=== PATIENT | female | born 1950 | race Caucasian/White ===

== ENCOUNTER → 2016-11-23 | Outpatient (CLI) | payer BC | LOC: FIMAGING 11:56 | PROVIDERS: ATTEND Family Medicine | DX: N64.4 Mastodynia (principal); Z85.3 Personal history of malignant neoplasm of breast | CPT/HCPCS: G0204 ==

== ENCOUNTER 2017-02-25 08:10 | Inpatient (IN) | payer BC ==
[2017-02-25] MEDS ORDERED: ASPIRIN 325 MG TAB PO ONE (08:16)
--- NOTE | 2017-02-25 08:19 | CPEKG ---
Heart Rate: 66 RR Interval: 909 P-R Interval: 160 QRSD Interval: 104 QT Interval: 388 QTC Interval: 407 P Maxwell: 13 QRS Maxwell: -16 T Wave Maxwell: 40 EKG Severity - ABNORMAL ECG - EKG Impression: SINUS RHYTHM EKG Impression: PROBABLE LEFT VENTRICULAR HYPERTROPHY Electronically Signed By: Mark Anthony Trujillo 25-Feb-2017 13:24:47
[2017-02-25] MEDS ORDERED: ASPIRIN 81 MG CHEWABLE TAB PO ONE (08:21)
--- NOTE | 2017-02-25 08:26 | EDPHY ---
H & P Time Seen by Provider: 02/25/17 08:25 HPI/ROS: Chief complaint. Chest pain HPI. 66-year-old female presents to the emergency department with chest pain that began at 7:40 a.m. this morning. It began while she was moving items from 1 shelf to another at home. It began with left arm pain and then quickly became left anterior chest discomfort. Now it has mid left chest radiating to the left arm. She describes it as a cramp. Slight shortness of breath. Seems to be worse with exertion not breathing or position. No similar symptoms previously. No recent fever cough. No unusual leg pain or swelling. ROS Constitutional. no fever/chills, no weakness Eyes. no problems with vision ENT. no sore throat, no nasal drainage Cardiovascular. Chest pain Respiratory. Shortness of breath Abdominal. no abdominal pain, no nausea/vomiting, no diarrhea . no problems urinating MS. no calf pain/swelling, no neck/back pain, no joint pain Skin. no rash Lymph. no swollen glands Neuro. no headache, no dizziness, no difficulty walking or with speech Past Medical/Surgical History: Dyslipidemia, GERD Family history father with coronary artery disease Social History: , nonsmoker, no alcohol Physical Exam: General Appearance: Alert well-developed female moderate distress vital signs are stable Eyes: Pupils equal and round no pallor or injection. ENT, Mouth: Mucous membranes are moist. Respiratory: There are no retractions, lungs are clear to auscultation. Cardiovascular: Regular rate and rhythm. Gastrointestinal: Abdomen is soft and nontender, no masses, bowel sounds normal. Neurological: Awake and alert, sensory and motor exams grossly normal. Skin: Warm and dry, no rashes. Musculoskeletal: Neck is supple nontender. Extremities symmetrical, full range of motion. Psychiatric: Patient is oriented X 3, there is no agitation. Constitutional: Initial Vital Signs Temperature (C) 36.5 C 02/25/17 08:18 Heart Rate 71 02/25/17 08:18 Respiratory Rate 18 02/25/17 08:18 Blood Pressure 161/85 H 02/25/17 08:18 O2 Sat (%) 95 02/25/17 08:18 O2 Delivery Mode Room Air O2 (L/minute) 1 Allergies/Adverse Reactions: adhesive tape Allergy (Verified 02/25/17 08:27) ketamine Allergy (Verified 02/25/17 09:15) phenylbutazone [From Butazolidin] Allergy (Verified 02/25/17 08:27) topiramate [From Topamax] Allergy (Verified 02/25/17 08:27) Home Medications: Medication Instructions Recorded Acetaminophen/ASA/Caffeine 1 each PO DAILY PRN 02/25/17 [Excedrin Tablet (*)] Aspirin [Aspirin 81mg (*)] 81 mg PO DAILY 02/25/17 Cholecalciferol Vit D3 [Vitamin D3 2,000 units PO BID 02/25/17 (*)] Diphenoxylate HCl/Atrop Sulf 1 - 2 tab PO Q6H PRN 02/25/17 [Lomotil Tab (*)] Esomeprazole Mag Trihydrate 40 mg PO BID 02/25/17 [Nexium] Furosemide [Lasix 20 MG (*)] 20 mg PO BID 02/25/17 Herbals/Supplements -Info Only 1 ea PO DAILY 02/25/17 Hyoscyamine Sulfate [Levsin, 0.125 mg PO DAILY PRN 02/25/17 Hyomax-Sl 0.125 mg (*)] Lact Cmb2/S.thermophl/Bif Cmb1 1 each PO DAILY 02/25/17 [Vsl#3 Cap (*)] Multivitamins [Multivitamin (*)] 1 each PO DAILY 02/25/17 Ondansetron Odt [Zofran Odt 4 mg 4 mg PO DAILY PRN 02/25/17 (*)] Potassium Chloride 10 meq PO HS 02/25/17 Propranolol Sr [Inderal LA 60mg 120 mg PO BID 02/25/17 (*)] Rosuvastatin Calcium [Crestor 5mg] 10 mg PO HS 02/25/17 carBAMazepine ER [Tegretol Xr] 200 mg PO DAILY@1200 02/25/17 carBAMazepine ER [Tegretol Xr] 300 mg PO BID@07,21 02/25/17 Medical Decision Making - Diagnostics EKG Interpretation: EKG interpreted by me shows normal sinus rhythm with normal interval and axis. LVH by voltage. No significant ST elevation or depression. No arrhythmia. The rate is 66 Imaging Results: One-view chest x-ray interpreted by me as negative acute Procedures: IV normal saline, monitor. Aspirin given in the emergency department Nitroglycerin sublingually for continued chest discomfort ED Course/Re-evaluation: Re-evaluation after nitroglycerin sublingually and the pain is markedly improved. She did get briefly hypotensive at about 100/50. She is treated with IV fluids Re-evaluation again at 9:05 a.m.. Patient is nearly pain-free. Blood pressure has stabilized 9:10 a.m. D-dimer and troponin are negative. Patient, her , and I discussed imaging, EKG, lab results. We discussed treatment plan including recommendation for admission. They expressed understanding and agreement I consulted and discussed the case with Dr. Johnson, hospitalist, who agrees to the admission Patient is reported by ambulance to [facility] Differential Diagnosis: I have considered acute coronary syndrome, non ST elevation [place], pneumonia, pulmonary embolus - Data Points Laboratory Results: Laboratory Results 02/26/17 07:33 02/26/17 04:50 Medications Given: Acetaminophen (Tylenol) 650 mg PO Q4HRS PRN PRN Reason: Pain, Mild/Fever, Can Take PO Stop: 08/24/17 13:19 Last Admin: 02/26/17 12:34 Dose: 650 mg Aspirin Buffered (Aspirin Ec) 325 mg PO DAILY LYDIA Stop: 08/25/17 08:59 Last Admin: 02/26/17 08:07 Dose: 325 mg Carbamazepine (Carbatrol) 200 mg PO DAILY@1200 LYDIA Stop: 08/25/17 11:59 Last Admin: 02/26/17 12:34 Dose: 200 mg Carbamazepine (Carbatrol) 300 mg PO BID@07,21 LYDIA Stop: 08/24/17 20:59 Last Admin: 02/27/17 06:56 Dose: 300 mg Furosemide (Lasix) 20 mg PO BIDDIUR LYDIA Stop: 08/24/17 20:59 Last Admin: 02/26/17 15:13 Dose: 20 mg Lact Acid/Bifidobact/Lact [place]/Streptoc Th (Vsl#3 Capsule) 1 each PO DAILY LYDIA Stop: 08/25/17 08:59 Last Admin: 02/26/17 08:16 Dose: 1 each Pantoprazole Sodium (Protonix) 40 mg PO BID LYDIA Stop: 08/24/17 20:59 Last Admin: 02/26/17 21:08 Dose: 40 mg Potassium Chloride (Klor-Con) 10 meq PO HS LYDIA Stop: 08/24/17 20:59 Last Admin: 02/26/17 21:08 Dose: 10 meq Propranolol HCl (Inderal La) 120 mg PO BID LYDIA Stop: 08/24/17 20:59 Last Admin: 02/26/17 21:08 Dose: 120 mg Rosuvastatin Calcium (Crestor) 10 mg PO HS [facility] Stop: 08/24/17 20:59 Last Admin: 02/26/17 21:08 Dose: 10 mg Discontinued Medications Aspirin (Aspirin) 325 mg PO EDNOW ONE Stop: 02/25/17 08:17 Last Admin: 02/25/17 08:25 Dose: Not Given Aspirin (Aspirin) 324 mg PO EDNOW ONE Stop: 02/25/17 08:22 Last Admin: 02/25/17 08:23 Dose: 324 mg Aspirin Buffered (Aspirin Ec) 325 mg PO ONCALL ONE Stop: 02/25/17 14:58 Last Admin: 02/25/17 16:57 Dose: Not Given Diazepam (Valium) 5 mg PO ONCALL ONE Stop: 02/25/17 14:58 Last Admin: 02/25/17 16:58 Dose: Not Given Diphenhydramine HCl (Benadryl) 25 mg PO ONCALL ONE Stop: 02/25/17 14:58 Last Admin: 02/25/17 16:58 Dose: Not Given Famotidine (Pepcid) 20 mg PO ONCALL ONE Stop: 02/25/17 14:58 Last Admin: 02/25/17 16:58 Dose: Not Given Furosemide (Lasix) 20 mg PO BID [facility] Stop: 08/24/17 20:59 Last Admin: 02/26/17 08:07 Dose: 20 mg Sodium Chloride (Ns) 1,000 mls @ 0 mls/hr IV ONCE ONE PRN Reason: Wide Open Stop: 02/25/17 08:38 Last Admin: 02/25/17 08:38 Dose: 1,000 mls Nitroglycerin (Nitrostat) 0.4 mg SL Q5M PRN PRN Reason: Chest Pain Stop: 02/25/17 08:46 Last Admin: 02/25/17 08:38 Dose: 0.4 mg Nitroglycerin (Nitrostat) 0.4 mg SL PRN PRN PRN Reason: Chest Pain Stop: 08/24/17 14:56 Last Admin: 02/25/17 22:47 Dose: 0.4 mg Departure - Departure Disposition: [facility] Inpatient Acute Clinical Impression: Chest pain Qualifiers: Chest pain type: unspecified Qualified Code(s): R07.9 - Chest pain, unspecified Condition: Good
[2017-02-25] MEDS ORDERED: NITROGLYCERIN 0.4 MG BTL SL PRN ×3 (08:35→16:43)
[2017-02-25] MEDS ORDERED: NITROGLYCERIN 0.4 MG BTL SL ONE ×2 (08:36→13:06)
[2017-02-25] MEDS ORDERED: NS 1,000 ML IV ONE (08:37)
[2017-02-25 08:40] LABS: % IMMATURE GRANULYOCYTES 0.5 % (0.0-1.1); ABSOLUTE IMMATURE GRANULOCYTES 0.03 10^3/uL (0.00-0.10); ADD DIFF? NO; ADD MORPH? NO; ADD SCAN? NO; ATYPICAL LYMPHOCYTE FLAG 0 (0-99); FRAGMENT RBC FLAG 0 (0-99); HEMATOCRIT 43.2 % (38.0-47.0); HEMOGLOBIN 14.6 g/dL (12.6-16.3); LEFT SHIFT FLG 0 (0-99); LIPEMIA HEMOLYSIS FLAG 90 (0-99); MEAN CELL HEMOGLOBIN 30.6 pg (27.9-34.1); MEAN CELL HEMOGLOBIN CONCENTR. 33.8 g/dL (32.4-36.7); MEAN CELL VOLUME 90.6 fL (81.5-99.8); MEAN PLATELET VOLUME 11.5 fL (8.7-11.7); PLATELET CLUMPS FLAG 30 (0-99); PLATELET COUNT 167 10^3/uL (150-400); RED BLOOD CELL COUNT 4.77 10^6/uL (4.18-5.33); RED CELL DISTRIBUTION WIDTH 13.5 % (11.5-15.2)
[2017-02-25 08:52] LABS: ANION GAP 12 mEq/L (8-16); CALCIUM 9.2 mg/dL (8.5-10.4); CARBON DIOXIDE 26 mEq/l (22-31); CHLORIDE 104 mEq/L (97-110); CREATININE 0.9 mg/dL (0.6-1.0); GLOMERULAR FILTRATION RATE > 60; GLUCOSE 150 mg/dL (70-100); POTASSIUM 4.4 mEq/L (3.5-5.2); SODIUM 142 mEq/L (134-144)
[2017-02-25 09:05] LABS: TROPONIN I < 0.012 ng/mL (0.000-0.034)
[2017-02-25] MEDS ORDERED: oxyCODONE IR 5 MG TAB PO PRN (13:20)
[2017-02-25] MEDS ORDERED: ONDANSETRON 4 MG/2 ML VIAL IVP PRN ×2 (13:20→16:43)
[2017-02-25] MEDS ORDERED: TEMAZEPAM 15 MG CAP PO PRN ×2 (13:20→14:57)
[2017-02-25] MEDS ORDERED: ONDANSETRON DISINTEGRATING 4 MG TAB PO PRN (13:20)
[2017-02-25] MEDS ORDERED: DIPHENOXYLATE/ATROPINE LOMOTIL 1 TAB PO PRN (13:22)
[2017-02-25] MEDS ORDERED: ACETAMINOPHEN/ASA/CAFFEINE 1 EACH TAB PO PRN (13:22)
[2017-02-25] MEDS ORDERED: HYOSCYAMINE SULFATE 0.125 MG TAB PO PRN (13:22)
[2017-02-25 13:53] LABS: TROPONIN I 0.225 ng/mL (0.000-0.034)
--- NOTE | 2017-02-25 13:59 | GHP ---
[f rep st] HISTORY AND PHYSICAL DATE OF ADMISSION: 02/25/2017 CHIEF COMPLAINT: Chest pain. HISTORY OF PRESENT ILLNESS: This is a 66-year-old female who presents with chest pain. This starte d 7:40 a.m. this morning. Described as left-sided tightness with some sharp components radiating to her left arm. It is unclear if this was exertional. It did not seem to be significantly worsened by exertion. It began while she was moving stuffed animals from one shelf to another. In the urgen t care she received a sublingual nitroglycerin, which resolved her pain. When I am seeing her, her pain is beginning to return. It was as bad as a 6/10. When I am seeing her, it is about 2/10. I g ave her another nitroglycerin with resolution of her pain in about 5 minutes. PAST MEDICAL/SURGICAL HISTORY: 1. Hyperlipidemia. 2. GERD. 3. Trigeminal neuralgia. MEDICATIONS: Please see medication reconciliation. ALLERGIES: Tape, ketamine, phenylbutazone, topiramate. SOCIAL HISTORY: She is accompanied by her . She does not drink or smoke. FAMILY HISTORY: Her father had heart disease. He had 2 MIs in his 60s. REVIEW OF SYSTEMS: A 10-point review of systems is conducted and is negative except per HPI. PHYSICAL EXAM: VITAL SIGNS: Blood pressure 108/77, heart rate 62, respiration rate 16, sat 91% on room air, temperature is 36.9. GENERAL: The patient is a pleasant female who is resting comfortabl y in no acute distress. HEENT: Normocephalic, atraumatic. CARDIOVASCULAR: Regular rate and rhyth m. No murmurs, rubs, or gallops. No elevated JVD. No lower extremity edema. PULMONARY: Lungs cl ear to auscultation bilaterally. ABDOMEN: Soft, nontender, nondistended. SKIN: No rash. : No Powers. NEUROLOGIC: Exam shows her to be alert and oriented x3. She is moving all extremities. P SYCHIATRIC: Normal mood and affect. LABS: CBC is normal. D-dimer is negative. Glucose is 150. Troponins negative. DATA: 1. I personally viewed and interpreted her chest x-ray. This shows nothing acute. Normal heart si ze. 2. EKG, which I personally viewed and interpreted, shows sinus rhythm. Borderline left axis deviat ion. There are no ST changes. No abnormal T-waves. IMPRESSION AND PLAN: A 66-year-old female presents with chest pain concerning for angina. 1. Chest pain: I have discussed with Cardiology. They will consult. I have drawn a second stat t roponin to further help risk stratify her. Based on her followup enzymes and cardiology evaluation, anticipate either stress test or invasive evaluation. She received an aspirin already. Her risk f actors for heart disease are obesity, age, and hyperlipidemia. 2. Hyperglycemia: She does not have a diagnosis of diabetes. We will check an A1c. 3. Hyperlipidemia: Crestor. 4. Trigeminal neuralgia: Tegretol. 5. Code status: Full code. /[id number]/MODL
[2017-02-25] MEDS ORDERED: FAMOTIDINE 20 MG TAB PO ONE (14:57)
[2017-02-25] MEDS ORDERED: ACETAMINOPHEN 325 MG TAB PO PRN (14:57)
[2017-02-25] MEDS ORDERED: ASPIRIN EC 325 MG TAB PO ONE (14:57)
[2017-02-25] MEDS ORDERED: diphenhydrAMINE 25 MG CAP PO ONE (14:57)
[2017-02-25] MEDS ORDERED: DIAZEPAM 5 MG TAB PO ONE (14:57)
[2017-02-25] MEDS ORDERED: NS 1,000 ML IV SCH (15:00)
[2017-02-25] MEDS ORDERED: MIDAZOLAM 2 MG/2 ML VIAL ONE ×2 (15:05→15:06)
[2017-02-25] MEDS ORDERED: fentaNYL 100 MCG/2 ML INJ ONE (15:05)
[2017-02-25] MEDS ORDERED: LIDOCAINE 1% 300 MG/30 ML SDV ONE (15:05)
[2017-02-25] MEDS ORDERED: IOPAMIDOL (ISOVUE-370) 150 ML BTL IV ONE (15:06)
--- NOTE | 2017-02-25 15:13 | PDCARCONS ---
Cardiology Consult Reason for Consult: Chest Pain Chief Complaint: chest pain Requesting Physician: hospitalists History of Present Illness: Patient is a 66 y/o female with history of HLP (on statins), migraines, obesity , and GERD, who presented to [facility] this morning with complaints of chest discomfort. Discomfort was a pain, with intensity to 8-9/10. Localized to the left substernal region. There was some radiation into the left shoulder, shoulder blade, and down the left arm. Mild nausea was noted, but no emesis. Mild diaphoresis. Mild dyspnea. Sub lingual NTG led to resolution of the discomfort, but after a few, the symptoms came back. A second NTG led to current improvement in symptoms. Initial troponin was normal, but second troponin was elevated to 0.2. ECG without dynamic ST/T wave changes noted. No history of CAD in the past. PCP with stress testing in the past and no overt pathology noted. Review of systems: 12 point ROS was unremarkable outside of that which was mentioned above History Information - Allergies/Home Medication List Allergies/Adverse Reactions: adhesive tape Allergy (Verified 02/25/17 08:27) ketamine Allergy (Verified 02/25/17 09:15) phenylbutazone [From Butazolidin] Allergy (Verified 02/25/17 08:27) topiramate [From Topamax] Allergy (Verified 02/25/17 08:27) Home Medications: Acetaminophen/ASA/Caffeine [Excedrin Tablet (*)] 1 each PO DAILY PRN 02/25/17 [ Last Taken Unknown] Aspirin [Aspirin 81mg (*)] 81 mg PO DAILY 02/25/17 [Last Taken 02/25/17] Cholecalciferol Vit D3 [Vitamin D3 (*)] 2,000 units PO BID 02/25/17 [Last Taken 02/25/17] Diphenoxylate HCl/Atrop Sulf [Lomotil Tab (*)] 1 - 2 tab PO Q6H PRN 02/25/17 [ Last Taken Unknown] Esomeprazole Mag Trihydrate [Nexium] 40 mg PO BID 02/25/17 [Last Taken 02/25/17] Furosemide [Lasix 20 MG (*)] 20 mg PO BID 02/25/17 [Last Taken 02/25/17] Herbals/Supplements -Info Only 1 ea PO DAILY 02/25/17 [Last Taken Unknown] Hyoscyamine Sulfate [Levsin, Hyomax-Sl 0.125 mg (*)] 0.125 mg PO DAILY PRN 02/25 [Last Taken Unknown] Lact Cmb2/S.thermophl/Bif Cmb1 [Vsl#3 Cap (*)] 1 each PO DAILY 02/25/17 [Last Taken Unknown] Multivitamins [Multivitamin (*)] 1 each PO DAILY 02/25/17 [Last Taken 02/25/17] Ondansetron Odt [Zofran Odt 4 mg (*)] 4 mg PO DAILY PRN 02/25/17 [Last Taken Unknown] Potassium Chloride 10 meq PO HS 02/25/17 [Last Taken 02/24/17] Propranolol Sr [Inderal LA 60mg (*)] 120 mg PO BID 02/25/17 [Last Taken 02/25/17 ] Rosuvastatin Calcium [Crestor 5mg] 10 mg PO HS 02/25/17 [Last Taken 02/24/17] carBAMazepine ER [Tegretol Xr] 200 mg PO DAILY@1200 02/25/17 [Last Taken ] carBAMazepine ER [Tegretol Xr] 300 mg PO BID@07,21 02/25/17 [Last Taken 02/24/17 ] I have personally reviewed and updated: family history, medical history, social history, surgical history - Past Medical History GERD, hyperlipidemia - Surgical History Reports: cholecystectomy - Family History Positive for: CAD, hypertension, myocardial infarction - Social History Smoking Status: Never smoked Alcohol Use: None Drug Use: None Cardiac History - Cardiac History Cardiac Risk Factors: lipidemia Timing/Duration: Hours Severity: severe Severity Scale: 8 Location: substernal, central, shoulder Activities at Onset: activity Modifying Factors: improves with: oxygen, rest Associated Symptoms: chest pain, diaphoresis, nausea/vomiting, shortness of breath, weakness JOCELYN Risk Evaluation age greater or equal to 65: no greater or equal to 3 CAD risk factors: no known CAD(stenosis greater or eqaul to 50%): no ASA use in past 7 days: yes severe angina(greater or equal to 2 episodes in 24hrs): yes EKG ST changes greater or equal to 0.5mm: no positive cardiac marker: yes Total Score: 3 JOCELYN Score: 13.2% risk Physical Exam Temp Pulse Resp BP Pulse Ox 36.9 C 62 16 108/77 91 L 02/25/17 11:52 02/25/17 11:52 02/25/17 11:52 02/25/17 13:13 02/25/17 11:52 Constitutional: no apparent distress, appears nourished, obese Eyes: PERRL Ears, Nose, Mouth, Throat: moist mucous membranes, hearing normal Cardiovascular: regular rate and rhythym, no murmur, rub, or gallop, No JVD, No edema Peripheral Pulses: 2+: dorsalis-pedis (R), dorsalis-pedis (L) Respiratory: no respiratory distress, clear to auscultation Gastrointestinal: normoactive bowel sounds Skin: warm, No rash Musculoskeletal: full muscle strength Neurologic: AAOx3, CN II-XII Intact Psychiatric: interacting appropriately, not anxious, not encephalopathic Lab and Imaging 02/25/17 08:30 02/25/17 08:30 WBC 5.68 10^3/uL (3.80-9.50) 02/25/17 08:30 RBC 4.77 10^6/uL (4.18-5.33) 02/25/17 08:30 Hgb 14.6 g/dL (12.6-16.3) 02/25/17 08:30 Hct 43.2 % (38.0-47.0) 02/25/17 08:30 MCV 90.6 fL (81.5-99.8) 02/25/17 08:30 MCH 30.6 pg (27.9-34.1) 02/25/17 08:30 MCHC 33.8 g/dL (32.4-36.7) 02/25/17 08:30 RDW 13.5 % (11.5-15.2) 02/25/17 08:30 Plt Count 167 10^3/uL (150-400) 02/25/17 08:30 MPV 11.5 fL (8.7-11.7) 02/25/17 08:30 Neut % (Auto) 70.9 % (39.3-74.2) 02/25/17 08:30 Lymph % (Auto) 21.1 % (15.0-45.0) 02/25/17 08:30 [place] % (Auto) 7.0 % (4.5-13.0) 02/25/17 08:30 Eos % (Auto) 0.0 % (0.6-7.6) L 02/25/17 08:30 Baso % (Auto) 0.5 % (0.3-1.7) 02/25/17 08:30 Nucleat RBC Rel Count 0.0 % (0.0-0.2) 02/25/17 08:30 Absolute Neuts (auto) 4.02 10^3/uL (1.70-6.50) 02/25/17 08:30 Absolute Lymphs (auto) 1.20 10^3/uL (1.00-3.00) 02/25/17 08:30 Absolute Monos (auto) 0.40 10^3/uL (0.30-0.80) 02/25/17 08:30 Absolute Eos (auto) 0.00 10^3/uL (0.03-0.40) L 02/25/17 08:30 Absolute Basos (auto) 0.03 10^3/uL (0.02-0.10) 02/25/17 08:30 Absolute Nucleated RBC 0.00 10^3/uL (0-0.01) 02/25/17 08:30 Immature Gran % 0.5 % (0.0-1.1) 02/25/17 08:30 Immature Gran # 0.03 10^3/uL (0.00-0.10) 02/25/17 08:30 D-Dimer 0.45 ug/mLFEU (0.00-0.50) 02/25/17 08:30 Sodium 142 mEq/L (134-144) 02/25/17 08:30 Potassium 4.4 mEq/L (3.5-5.2) 02/25/17 08:30 Chloride 104 mEq/L (97-110) 02/25/17 08:30 Carbon Dioxide 26 mEq/l (22-31) 02/25/17 08:30 Anion Gap 12 mEq/L (8-16) 02/25/17 08:30 BUN 18 mg/dL (7-23) 02/25/17 08:30 Creatinine 0.9 mg/dL (0.6-1.0) 02/25/17 08:30 Estimated GFR > 60 02/25/17 08:30 Glucose 150 mg/dL (70-100) H 02/25/17 08:30 Calcium 9.2 mg/dL (8.5-10.4) 02/25/17 08:30 Troponin I 0.225 ng/mL (0.000-0.034) H 02/25/17 13:25 Visualized and Interpreted Chest x-ray results: Yes Chest X-ray Interpretation: no infiltrate, normal EKG Interpretation: Positive for: normal sinsus rhythm. Negative for: NS ST wave abnormalities Telemetry: normal sinus rhythm A/P Assessment: Patient is a 66 y/o female with history of HLP, obesity, GERD, and migraines, who presented to [facility] with complaints of chest discomfort. Initial troponin was normal, but follow up with mild elevation. ECG without dynamic ST/T wave changes noted. Ongoing discomfort was noted after second NTG. Two options were discussed with the patient. Option A: non invasive stress testing - difficult to justify with both the elevation in cardiac biomarker as well as ongoing chest discomfort. Option B: angiography (risks and benefits were discussed). Given that the patient has had stress testing in the past AND she continues to have symptoms, we opted to proceed with angiography. Plan: Angiogram is scheduled for this afternoon
--- NOTE | 2017-02-25 15:19 | PDPROPOC ---
Sedation Plan of Care Sedation Plan of Care: vital signs stable, mental status noted, patient educated of risks, benefits, alternatives, patient can tolerate sedation ASA Classification: ASA 2 Planned drugs: fentanyl and versed Mallampati Score: Class 2 332 Rule: 332
--- NOTE | 2017-02-25 16:14 | PDDXCAT ---
Diagnostic Cath Note - . Date: 02/25/17 Jewelry Inspector: Rogelio Indication: Class III or IV angina, which improves to class I/II w medical therapy - Procedure Access: right groin Procedure: left heart catheterization, coronary angiography, left ventriculogram - Materials Left Heart Cath size: 6F Left Heart Cath materials: standard multipack (JL4, JR4, pigtail) - Findings-Left Heart Catheterization LM: very short with bifurcation into the LAD and LCX. no luminal irregularities were noted LAD: medium sized LAD with three diagonals. no luminal irregularities were noted. in the mid portion of the LAD, there is bridging noted. LCX: medium diameter vessel with large OM1 (principal) and smallish mid and distal LCX. no luminal irregularities were noted RCA: dominant vessel with supply to the PDA. medium diameter vessel. no luminal irregularities were noted EDP: 24 mm Hg LVEF: 65% Wall motion: normal Complications: none Estimated blood loss: <50ml Closure method: Angioseal Assessment: 66 y/o female with complaints of chest pains and a mild elevation in troponin was noted. normal LVEF. bridging to the mid LAD was noted. Plan: Aggressive medical therapy. Annual assessment of cholesterol and blood pressure. Would have patient follow up with cardiology in the outpatient setting. Consider GI consultation for further work up with GERD history and symptoms noted. Intervention: none
[2017-02-25] MEDS ORDERED: OXYCODONE/APAP 5/325 TAB PO PRN (16:43)
[2017-02-25] MEDS ORDERED: HYDROCODONE/APAP 5/325 TAB PO PRN (16:43)
[2017-02-25] MEDS ORDERED: ATROPINE SULFATE 1 MG/10 ML SYR IVP PRN (16:43)
[2017-02-25] MEDS: ACETAMINOPHEN 325 MG TAB PO PRN (17:08)
[2017-02-25 20:00] LABS: HEMOGLOBIN A1C 5.5 % (4.0-6.0)
[2017-02-25] MEDS: POTASSIUM CL 10 MEQ TAB PO SCH (20:25)
[2017-02-25] MEDS: PANTOPRAZOLE SODIUM 40 MG TAB PO SCH (20:25)
[2017-02-25] MEDS: PROPRANOLOL SR 60 MG CAP PO SCH (20:25)
[2017-02-25] MEDS: FUROSEMIDE 20 MG TAB PO SCH (20:25)
[2017-02-25] MEDS: ROSUVASTATIN CALCIUM 10 MG TAB PO SCH (20:25)
[2017-02-25] MEDS: carBAMazepine ER 300 MG CAP PO SCH (20:25)
[2017-02-25] MEDS: NITROGLYCERIN 0.4 MG BTL SL PRN ×3 (22:02→22:47)
[2017-02-26 05:40] LABS: ANION GAP 10 mEq/L (8-16); CARBON DIOXIDE 24 mEq/l (22-31); CHLORIDE 105 mEq/L (97-110); CHOLESTEROL 147 mg/dL (140-220); CHOLESTEROL/HDL RATIO 2.58 RATIO (1.00-4.44); CREATININE 0.8 mg/dL (0.6-1.0); GLOMERULAR FILTRATION RATE > 60; GLUCOSE 90 mg/dL (70-100); HIGH DENSITY LIPOPROTEIN 57 mg/dL (40-85); LDL/HDL RATIO 1.16 RATIO (1.00-3.22); LOW DENSITY LIPOPROTEIN 66 mg/dL (80-100); NON-HIGH DENSITY LIPOPROTEIN 90 mg/dL (90-129); POTASSIUM 3.8 mEq/L (3.5-5.2); SODIUM 139 mEq/L (134-144); TRIGLYCERIDE 124 mg/dL (35-135); VERY LOW DENSITY LIPOPROTEINS 24 mg/dL (8-25)
[2017-02-26 07:39] LABS: % IMMATURE GRANULYOCYTES 0.3 % (0.0-1.1); ABSOLUTE IMMATURE GRANULOCYTES 0.02 10^3/uL (0.00-0.10); ADD DIFF? NO; ADD MORPH? NO; ADD SCAN? NO; ATYPICAL LYMPHOCYTE FLAG 0 (0-99); FRAGMENT RBC FLAG 0 (0-99); HEMATOCRIT 40.8 % (38.0-47.0); HEMOGLOBIN 13.9 g/dL (12.6-16.3); LEFT SHIFT FLG 0 (0-99); LIPEMIA HEMOLYSIS FLAG 90 (0-99); MEAN CELL HEMOGLOBIN 30.7 pg (27.9-34.1); MEAN CELL HEMOGLOBIN CONCENTR. 34.1 g/dL (32.4-36.7); MEAN CELL VOLUME 90.1 fL (81.5-99.8); MEAN PLATELET VOLUME 11.4 fL (8.7-11.7); PLATELET CLUMPS FLAG 0 (0-99); PLATELET COUNT 150 10^3/uL (150-400); RED BLOOD CELL COUNT 4.53 10^6/uL (4.18-5.33); RED CELL DISTRIBUTION WIDTH 13.4 % (11.5-15.2)
[2017-02-26] MEDS: carBAMazepine ER 300 MG CAP PO SCH ×2 (08:06→21:08)
[2017-02-26] MEDS: ASPIRIN EC 325 MG TAB PO SCH (08:07)
[2017-02-26] MEDS: FUROSEMIDE 20 MG TAB PO SCH ×2 (08:07→15:13)
[2017-02-26] MEDS: PANTOPRAZOLE SODIUM 40 MG TAB PO SCH ×2 (08:07→21:08)
[2017-02-26] MEDS: PROPRANOLOL SR 60 MG CAP PO SCH ×2 (08:07→21:08)
[2017-02-26] MEDS: VSL#3 1 EACH CAP PO SCH (08:16)
--- NOTE | 2017-02-26 10:07 | PDCARPN ---
Cardiology Progress Note Chief Complaint: Chest pains were noted last night Assessment/Plan: Assessment: Patient is a 66 y/o female with history of GERD, HLP, and obesity, who presented to [facility] with complaints of chest pains. Chest pains with associated symptoms. ECG without dynamic ST/T wave changes noted. Mild troponin elevation was noted, and trend upward was noted. Given the signs, symptoms, and test results, we opted to take the patient to the cardiac produce laborer yesterday. 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 Normal left ventricular systolic ejection fraction was noted. No intervenable lesions were noted. Recommendations were for further GI work up (GERD/IBS history). Overnight, the patient had further discomfort, but the discomfort was more noted to the upper abdomen. No ECG was obtained, but three SL NTG were dosed, and the symptoms resolved. Troponin redraw last night (pre pain) with further elevation noted. Plan: (1) Reassessment of troponin this morning (2) An option would be to have non invasive MPI testing to determine if there is a region of interest that has diminished blood flow. There was not one identified by angiography, and microvascular disease did not appear to be noted , but the patient continues to have symptoms. (3) GI consultation should be pursued with the history reported (4) Would maintain therapy on statins for HLP history (5) Will await the results of the pending testing Subjective: No cardiovascular complaints at present, but chest/abdomen pains were noted last night Reviewed/Discussed With: family, hospitalist, multidisciplinary team Objective: Vital Signs (8 Hrs) Temp Pulse Resp BP Pulse Ox 02/26/17 07:33 36.6 C 64 18 123/67 H 90 L 02/26/17 04:00 36.7 C 70 12 129/69 H 95 Intake/Output (24 Hrs) 02/25/17 02/26/17 02/27/17 05:59 05:59 05:59 Intake Total 1500 Balance 1500 Intake: Oral (ml) 500 IV Infused (ml) 1000 Other: Weight 113 kg Number of Voids 1 Toilet 1 Result Diagrams: 02/26/17 07:33 02/26/17 04:50 Cardiac Labs: Cardiac Lab Results (72 Hrs) 02/25/17 02/25/17 19:03 13:25 Troponin I 1.770 H 0.225 H Telemetry: normal sinus rhythm with heart rate of 75 bpm. - Physical Exam Constitutional: WDWN, healthy appearing, no apparent distress, obese Eyes: PERRL, EOMI Ears, Nose, Mouth, Throat: moist mucous membranes Cardiovascular: regular rate and rhythm, no murmurs, no rubs Peripheral Pulses: 2+: dorsalis-pedis (R), dorsalis-pedis (L) Respiratory: clear to auscultate bilat, no crackles, no wheezes Gastrointestinal: normoactive bowel sounds Skin: no rashes, no edema Musculoskeletal: no muscular tenderness Neurologic: AAOx3, CN II-XII grossly intact Psychiatric: cooperative, interactive, following commands ICD10 Worksheet Patient Problems: Problems Problem Status Onset Chest pain Acute - ICD10 Problem Qualifiers (1) Chest pain Qualifiers: Chest pain type: precordial pain Ischemic chest pain type: I Qualified Code(s): R07.2 - Precordial pain
--- NOTE | 2017-02-26 11:45 | HOSPPROG ---
Hospitalist Progress Note Assessment/Plan: 66 yo F w NSTEMI NSTEMI: ? myocardial bridge cath w no flow limiting disease low ldl, normal A1c on asa ? role of stress reflux: bid ppi hyperlipidemia: statin proph: lmwh dispo: inpatient Subjective: no events telemetry (interp by me). case d/w dr mcgregor Objective: Vital Signs Temp Pulse Resp BP Pulse Ox 36.9 C 73 16 117/61 91 L 02/26/17 11:32 02/26/17 11:32 02/26/17 11:32 02/26/17 11:32 02/26/17 11:32 Laboratory Results 02/26/17 07:33 02/26/17 04:50 02/25/17 02/26/17 02/27/17 05:59 05:59 05:59 Intake Total 1500 Balance 1500 - Physical Exam Constitutional: no apparent distress, appears nourished Eyes: PERRL, anicteric sclera Ears, Nose, Mouth, Throat: moist mucous membranes, hearing normal Cardiovascular: regular rate and rhythym, no murmur, rub, or gallop Respiratory: no respiratory distress, no rales or rhonchi Gastrointestinal: normoactive bowel sounds, soft, non-tender abdomen Genitourinary: no bladder fullness, No marin in urethra Skin: warm Musculoskeletal: full muscle strength Neurologic: AAOx3, sensation intact bilaterally Psychiatric: interacting appropriately, not anxious Lymph, Heme, Immunologic: no cervical LAD, no supraclavicular LAD ICD10 Worksheet Patient Problems: Problems Problem Status Onset Chest pain Acute
[2017-02-26] MEDS: carBAMazepine ER 200 MG CAP PO SCH (12:34)
[2017-02-26] MEDS: ACETAMINOPHEN 325 MG TAB PO PRN (12:34)
[2017-02-26] MEDS ORDERED: KETOROLAC 15 MG/1 ML SDV IVP PRN (13:28)
--- NOTE | 2017-02-26 15:25 | ASMTCASEMG ---
Living Arrangements What is your living arrangement? Who do you live Answers: With Spouse with? Type Of Residence What kind of residence do you live in? Answers: House Discharge Plan Comments Coordination Status Comments Notes: Spoke w/ RN, chart reviewed. Pt was admitted for chest pain. Pt is anticipated to d/c independent. Pt will return home w/ . CM available if there are any changes. Date Signed: 02/26/2017 03:25 PM Electronically Signed By:Summer Eden
[2017-02-26] MEDS: ROSUVASTATIN CALCIUM 10 MG TAB PO SCH (21:08)
[2017-02-26] MEDS: POTASSIUM CL 10 MEQ TAB PO SCH (21:08)
[2017-02-27] MEDS: carBAMazepine ER 300 MG CAP PO SCH (06:56)
[2017-02-27 07:21] VITALS: RESP 12
[2017-02-27] MEDS: PANTOPRAZOLE SODIUM 40 MG TAB PO SCH (08:01)
[2017-02-27] MEDS: FUROSEMIDE 20 MG TAB PO SCH ×2 (08:01→15:26)
[2017-02-27] MEDS: ASPIRIN EC 325 MG TAB PO SCH (08:02)
[2017-02-27] MEDS: VSL#3 1 EACH CAP PO SCH (08:02)
[2017-02-27] MEDS ORDERED: ENOXAPARIN 40 MG/0.4 ML SYR SC SCH (09:00)
[2017-02-27] MEDS: PROPRANOLOL SR 60 MG CAP PO SCH (09:24)
[2017-02-27] MEDS: carBAMazepine ER 200 MG CAP PO SCH (12:05)
[2017-02-27] MEDS ORDERED: REGADENOSON 0.4 MG/5 ML SYR IVP ONE (14:05)
--- NOTE | 2017-02-27 15:09 | PDCARPN ---
Cardiology Progress Note Chief Complaint: No cardiovascular complaints this morning or overnight Assessment/Plan: Assessment: 02-27-17 No cardiovascular complaints overnight. Given the ongoing elevation in Troponin that was noted, and a questionable lesion to the mid LAD (thought to be simply bridging myocardium), we have arranged for the patient to have Molly MPI today. No chest pains or pressure. No PND or orthopnea. was present with the patient in the room today. Questions about what to do if the symptoms come back were once again addressed. Angiogram report was reviewed with patient and . Troponin elevation continued, but this morning, the trend has been back toward normal. 02-26-17 Patient is a 66 y/o female with history of GERD, HLP, and obesity, who presented to [facility] with complaints of chest pains. Chest pains with associated symptoms. ECG without dynamic ST/T wave changes noted. Mild troponin elevation was noted, and trend upward was noted. Given the signs, symptoms, and test results, we opted to take the patient to the cardiac quality control lab tech yesterday. 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 Normal left ventricular systolic ejection fraction was noted. No intervenable lesions were noted. Recommendations were for further GI work up (GERD/IBS history). Overnight, the patient had further discomfort, but the discomfort was more noted to the upper abdomen. No ECG was obtained, but three SL NTG were dosed, and the symptoms resolved. Troponin redraw last night (pre pain) with further elevation noted. Plan: (1) Would arrange for MPI (molly) today (2) Statins should continue (3) Pending the results of the stress test, this will dictate what further cardiac (or GI) evaluations are needed. Subjective: No cardiovascular complaints Reviewed/Discussed With: family, hospitalist Objective: Vital Signs (8 Hrs) Temp Pulse Resp BP Pulse Ox 02/27/17 12:00 36.8 C 62 12 131/59 H 95 02/27/17 07: 36.9 C 62 12 119/71 93 Intake/Output (24 Hrs) 02/26/17 02/27/17 02/28/17 05:59 05:59 05:59 Intake Total 300 Balance 300 Intake: Oral (ml) 300 Other: Number of Voids Toilet 2 1 Result Diagrams: 02/26/17 07:33 02/26/17 04:50 Cardiac Labs: Cardiac Lab Results (72 Hrs) 02/27/17 02/26/17 04:31 16:40 Troponin I 0.938 H 1.250 H Telemetry: normal sinus - Physical Exam Constitutional: healthy appearing, obese Eyes: PERRL Ears, Nose, Mouth, Throat: moist mucous membranes Cardiovascular: regular rate and rhythm, no murmurs, No jugular vein distention Peripheral Pulses: 2+: dorsalis-pedis (R), dorsalis-pedis (L) Respiratory: clear to auscultate bilat, no crackles, no wheezes Gastrointestinal: normoactive bowel sounds Skin: no edema Musculoskeletal: no muscular tenderness Neurologic: AAOx3, CN II-XII grossly intact Psychiatric: cooperative, interactive, following commands ICD10 Worksheet Patient Problems: Problems Problem Status Onset Chest pain Acute Chest pain Acute - ICD10 Problem Qualifiers (1) Chest pain Qualifiers: Chest pain type: precordial pain Ischemic chest pain type: I Qualified Code(s): R07.2 - Precordial pain
[2017-02-27 15:19] VITALS: BP 117/62; PULSE 61; TEMP 98.6; O2SAT 93
--- NOTE | 2017-02-27 16:50 | HOSPPROG ---
Hospitalist Progress Note Assessment/Plan: 66 yo F w NSTEMI NSTEMI: ? myocardial bridge cath w no flow limiting disease low ldl, normal A1c on asa ? role of stress reflux: bid ppi hyperlipidemia: statin proph: lmwh dispo: home today > 30 minutes see dc summary Subjective: neg stress Objective: Vital Signs Temp Pulse Resp BP Pulse Ox 37.0 C 61 12 117/62 93 02/27/17 15:18 02/27/17 15:18 02/27/17 15:18 02/27/17 15:18 02/27/17 15:18 02/26/17 02/27/17 02/28/17 05:59 05:59 05:59 Intake Total 300 Balance 300 - Physical Exam Constitutional: no apparent distress, appears nourished Eyes: PERRL, anicteric sclera Ears, Nose, Mouth, Throat: moist mucous membranes, hearing normal Cardiovascular: regular rate and rhythym, no murmur, rub, or gallop Respiratory: no respiratory distress, no rales or rhonchi Gastrointestinal: normoactive bowel sounds, soft, non-tender abdomen Genitourinary: no bladder fullness, No marin in urethra Skin: warm Musculoskeletal: full muscle strength, no muscle tenderness Neurologic: AAOx3 ICD10 Worksheet Patient Problems: Problems Problem Status Onset Chest pain Acute Chest pain Acute
--- NOTE | 2017-02-27 17:56 | ASDISCHSUM ---
Discharge Information Plan Status:Home with No Needs Medically Cleared to Leave: Discharge Date:02/27/2017 05:42 PM D/C Disposition:Home, Routine, Self-Care ADT D/C Disposition:Home, Routine, Self-Care Projected Discharge Date:02/27/2017 05:42 PM Transportation at D/C: Discharge Delay Reason: Follow-Up Date:02/27/2017 05:42 PM Discharge Slot: Final Diagnosis: Placement Information Patient Contact Information Contact Name:LETICIA Relationship: Address:[address] City:[facility] Phone: [facility] Code:[place] [address] Email: Financial Information Financial Class:HMO and PPO Plans Primary Plan Desc: OUT OF STATE PPO Primary Plan Number:[id number] Secondary Plan Desc: Secondary Plan Number: Assessment Information [facility] Initial CM Assessment Living Arrangements What is your living Answers: With Spouse arrangement? Who do you live with? Type Of Residence What kind of residence do Answers: House you live in? Discharge Plan Comments Coordination Status Comments Notes: Spoke w/ RN, chart reviewed. Pt was admitted for chest pain. Pt is anticipated to d/c independent. Pt will return home w/ . CM available if there are any changes. Date Signed: 02/26/2017 03:25 PM Electronically Signed By:Summer Eden Intervention Information
--- NOTE | 2017-02-27 21:33 | GDS ---
[f rep st] DISCHARGE SUMMARY DISCHARGE DIAGNOSES: 1. Non ST elevated myocardial infarction. 2. 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 3. Hyperlipidemia. 4. Gastroesophageal reflux disease. 5. Trigeminal neuralgia. HOSPITAL COURSE: Please see admission history and physical by Dr. Cory Nichols. Patient presented w ith chest pain. She was found to have a positive troponin. Her presenting EKG did not show ischemi c changes. She went to the syrup machine laborer where she was found to have no luminal irregularities other eric n myocardial bridging, without obstruction to flow. She underwent a stress test which showed apical infarct, that I suspect is breast shadow but no ischemia. This is considered a negative evaluation . She is discharged on nitroglycerin. She is already on aspirin, statin, beta wayne, and she carmelo l continue these. She has outpatient followup. /[id number]/MODL
--- NOTE | 2017-02-28 00:13 | CPR ---
[f rep st] NONINVASIVE CARDIAC PROCEDURE REPORT DATE OF PROCEDURE: 02/27/2017 PROCEDURE: Nuclear Lexiscan Stress Test. REASON FOR TEST: Chest pain. RESULTS: Resting EKG shows a sinus bradycardia with a rate of 55. No ischemic changes noted. Rest ing blood pressure 122/64. Resting oxygen saturation 95%. She is asymptomatic. STRESS PORTION: Lexiscan was injected, followed by saline flush. Cardiolite was then injected. Adriana barragan felt some flushing and mild shortness of breath after injection. Blood pressure 122/60. Max hear t rate 83. Oxygen saturation 95%. RECOVERY: Symptoms did subside quickly during recovery. Blood pressure 122/60, oxygen saturation 9 8%, heart rate 83. No EKG changes. At this time, she is stable for nuclear imaging. /[id number]/MODL
== END 2017-02-27 17:42 | disposition home or self-care (01) | DRG 281 ==
LOC: CED 08:10 → CEDHOLD 09:38 → INTOOBSV 09:38 → F2W 11:28 → OBSVTOIN 02-26 16:30
PROVIDERS: ADMIT Student in an Organized Health Care Education/Training Program; ATTEND Internal Medicine
DX: I21.4 Non-ST elevation (NSTEMI) myocardial infarction (principal); Q24.5 Malformation of coronary vessels; E78.5 Hyperlipidemia, unspecified; E66.09 Other obesity due to excess calories; Z68.35 Body mass index [BMI] 35.0-35.9, adult; G43.909 Migraine, unspecified, not intractable, without status migrainosus; K21.9 Gastro-esophageal reflux disease without esophagitis; G50.0 Trigeminal neuralgia
CPT/HCPCS: 71010-PO; 80048-PO; 84481-90; 84484-PO; 85025-PO; 85378-PO; A9500; C1760; G0378; J1644; J1650; J2250; J2785; J3010; Q9967

== ENCOUNTER 2017-02-28 14:14 | Emergency (ER) | payer BC ==
[2017-02-28 14:26] VITALS: BP 110/79; PULSE 72; RESP 18; TEMP 98.8; O2SAT 93
--- NOTE | 2017-02-28 15:18 | EDPHY ---
H & P Stated Complaint: itchy rash on back. Nuc stress test yesterday Time Seen by Provider: 02/28/17 14:50 HPI/ROS: CHIEF COMPLAINT: Pruritic rash on back HISTORY OF PRESENT ILLNESS: The patient presents to the ED with complaints of a pruritic rash on her back. The patient reportedly had a nuclear stress test yesterday which was negative. She denies prior history of allergic reaction. The patient denies any chest pain or difficulty breathing. She denies any additional acute complaints. The patient does have trigeminal neuralgia and Meniere's disease. She denies any new prescription medications. REVIEW OF SYSTEMS: A comprehensive 10 point review of systems is otherwise negative aside from elements mentioned in the history of present illness. Source: Patient Exam Limitations: No limitations - Medical/Surgical History Hx Asthma: No Hx Chronic Respiratory Disease: No Hx Diabetes: No Hx Cardiac Disease: No Hx Renal Disease: No Hx Cirrhosis: No Hx Alcoholism: No Hx HIV/AIDS: No Hx Splenectomy or Spleen Trauma: No Other PMH: BREAST CA WITH SURG, GERD, HIGH CHOLESTROL, TONSILECTOMY, APPY, HYST , GALL BLADDER, ORTHO SURG, HIP REPLACMENTS, migraines - Social History Smoking Status: Never smoked - Physical Exam Exam: General Appearance: Alert, no distress Eyes: Pupils equal and round no pallor or injection ENT, Mouth: Mucous membranes moist Respiratory: There are no retractions, lungs are clear to auscultation Cardiovascular: Regular rate and rhythm Gastrointestinal: Abdomen is soft and nontender, no masses, bowel sounds normal Neurological: A&O, normal motor function, normal sensory exam, normal cranial nerves Skin: Small urticarial rash noted across the back Musculoskeletal: Neck is supple nontender Extremities: symmetrical, full range of motion Constitutional: Initial Vital Signs Temperature (C) 37.1 C 02/28/17 14:23 Heart Rate 72 02/28/17 14:23 Respiratory Rate 18 02/28/17 14:23 Blood Pressure 110/79 02/28/17 14:23 O2 Sat (%) 93 02/28/17 14:23 O2 Delivery Mode Room Air Allergies/Adverse Reactions: adhesive tape Allergy (Verified 02/25/17 08:27) ketamine Allergy (Verified 02/25/17 09:15) phenylbutazone [From Butazolidin] Allergy (Verified 02/25/17 08:27) topiramate [From Topamax] Allergy (Verified 02/25/17 08:27) Home Medications: Medication Instructions Recorded Acetaminophen/ASA/Caffeine 1 each PO DAILY PRN 02/25/17 [Excedrin Tablet (*)] Aspirin [Aspirin 81mg (*)] 81 mg PO DAILY 02/25/17 Cholecalciferol Vit D3 [Vitamin D3 2,000 units PO BID 02/25/17 (*)] Diphenoxylate HCl/Atrop Sulf 1 - 2 tab PO Q6H PRN 02/25/17 [Lomotil Tab (*)] Esomeprazole Mag Trihydrate 40 mg PO BID 02/25/17 [Nexium] Furosemide [Lasix 20 MG (*)] 20 mg PO BID 02/25/17 Herbals/Supplements -Info Only 1 ea PO DAILY 02/25/17 Hyoscyamine Sulfate [Levsin, 0.125 mg PO DAILY PRN 02/25/17 Hyomax-Sl 0.125 mg (*)] Lact Cmb2/S.thermophl/Bif Cmb1 1 each PO DAILY 02/25/17 [Vsl#3 Cap (*)] Multivitamins [Multivitamin (*)] 1 each PO DAILY 02/25/17 Ondansetron Odt [Zofran Odt 4 mg 4 mg PO DAILY PRN 02/25/17 (*)] Potassium Chloride 10 meq PO HS 02/25/17 Propranolol Sr [Inderal LA 60mg 120 mg PO BID 02/25/17 (*)] Rosuvastatin Calcium [Crestor 5mg] 10 mg PO HS 02/25/17 carBAMazepine ER [Tegretol Xr] 200 mg PO DAILY@1200 02/25/17 carBAMazepine ER [Tegretol Xr] 300 mg PO BID@07,21 02/25/17 Nitroglycerin 0.4 mg SL Q5M PRN #30 tab 02/27/17 Medical Decision Making ED Course/Re-evaluation: The patient presents to the emergency department with an urticaria reaction after receiving a nuclear stress test yesterday. She has no evidence of hives or anaphylaxis. The patient will be advised to use Benadryl and prednisone. The patient is discharged home with customary aftercare instructions. Departure - Departure Disposition: Home, Routine, Self-Care Clinical Impression: Urticaria Condition: Good Instructions: Urticaria (ED) Additional Instructions: 1. Take prednisone as directed for next 4 days. 2. Benadryl 50 mg every 6 hours for itching. 3. Return to the emergency department for any severe pain worsening symptoms or other concerns.
== END 2017-02-28 15:20 | disposition home or self-care (01) ==
DX: L50.9 Urticaria, unspecified (principal); Z79.82 Long term (current) use of aspirin; Z85.3 Personal history of malignant neoplasm of breast

== ENCOUNTER → 2017-05-01 | Outpatient (CLI) | payer OTHER, BC | LOC: FIMAGING 12:10 | PROVIDERS: ATTEND Physician Assistant | DX: N63.10 Unspecified lump in the right breast, unspecified quadrant (principal); Z85.3 Personal history of malignant neoplasm of breast; Z80.3 Family history of malignant neoplasm of breast | CPT/HCPCS: 76641; G0204 ==

== ENCOUNTER → 2017-05-08 | Outpatient (CLI) | payer OTHER, BC ==
[~2017-05-08] MED LIST: BUPIVACAINE 0.5% 10 ML SDV ONE; LIDOCAINE 1% 300 MG/30 ML SDV ONE
[2017-05-15 14:35] LABS: FIXED IN 10%FORM 6-72HR Yes; FIXED IN 10%FORM W/IN 1 HR Yes
== END ==
LOC: FIMAGING 07:06
PROVIDERS: ATTEND Physician Assistant
PROC: 0HBT3ZX Excision of Right Breast, Percutaneous Approach, Diagnostic (ICD-10-PCS; principal; 2017-05-08)
DX: C50.911 Malignant neoplasm of unspecified site of right female breast (principal)
CPT/HCPCS: 19083; 88305; 88341; 88342; 88360; 88361; G0206

== ENCOUNTER 2017-09-03 21:30 | Inpatient (IN) | payer OTHER, BC ==
--- NOTE | 2017-09-03 21:48 | CPEKG ---
Heart Rate: 59 RR Interval: 1017 P-R Interval: 164 QRSD Interval: 106 QT Interval: 420 QTC Interval: 416 P [place]: 6 QRS [place]: -24 T Wave [place]: 75 EKG Severity - ABNORMAL ECG - EKG Impression: SINUS RHYTHM EKG Impression: PROBABLE LVH WITH SECONDARY REPOL ABNRM Electronically Signed By: Ric Resendez 04-Sep-2017 09:22:23
--- NOTE | 2017-09-03 21:49 | EDPHY ---
H & P Stated Complaint: chest pain Time Seen by Provider: 09/03/17 21:45 HPI/ROS: HPI CHIEF COMPLAINT: Chest pain HISTORY OF PRESENT ILLNESS: Patient is a 67-year-old female history of hyperlipidemia, hypertension, presents emergency room with chest discomfort substernal. States times radiates out into her chest. She describes a dull ache substernal discomfort. Sometimes goes to her back. This started around 830 this evening. She took 4 baby aspirin prior to arrival additionally she took multiple nitroglycerin to see if this helped her chest discomfort would help for little bit and then it would come back. Currently upon arrival she arrives to the emergency room by EMS she was given multiple nitroglycerin in route. Her pain is currently 3/10. Substernal. Denies any shortness of breath or pleuritic pain. Denies recent illness. Past Medical History: Trigeminal neuralgia, GERD, hyperlipidemia, hypertension , non ST elevation [place], myocardial bridge, breast CA Past Surgical History: Bilateral mastectomy due to breast CA Social History: Denies drugs alcohol tobacco products Family History: Noncontributory ROS REVIEW OF SYSTEMS: A comprehensive 10 point review of systems is otherwise negative aside from elements mentioned in the history of present illness. Exam Constitutional triage nursing summary reviewed, vital signs reviewed, awake/ alert. Eyes normal conjunctivae and sclera, EOMI, PERRLA. HENT normal inspection, atraumatic, moist mucus membranes, no epistaxis, neck supple/ no meningismus, no raccoon eyes. Respiratory clear to auscultation bilaterally, normal breath sounds, no respiratory distress, no wheezing. Cardiovascular rate normal, regular rhythm, no murmur, no edema, distal pulses normal. Gastrointestinal soft, non-tender, no rebound, no guarding, normal bowel sounds, no distension, no pulsatile mass. Genitourinary no CVA tenderness. Musculoskeletal no midline vertebral tenderness, full range of motion, no calf swelling, no tenderness of extremities, no meningismus, good pulses, neurovascularly intact. Skin pink, warm, & dry, no rash, skin atraumatic. Neurologic awake, alert and oriented x 3, AAOx3, moves all 4 extremities equally, motor intact, sensory intact, CN II-XII intact, normal cerebellar, normal vision, normal speech. Psychiatric normal mood/affect. Heme/Lymph/Immune no lymphadenopathy. Differential diagnosis includes but is not limited to: ACS, atypical chest pain , pneumothorax, pneumonia, pulmonary embolism, aortic dissection, congestive heart failure, tumor, musculoskeletal pain, esophageal pain, GERD, peptic ulcer disease, pancreatitis Medical Decision Making: Plan for this patient IV establishment full teletypesetter monitor, EKG, rule out acute coronary syndrome, check troponin, check D-dimer, chest x-ray, artery receive full-dose aspirin, already had multiple nitroglycerin dose. Will provide morphine for pain control. Re-evaluate. Re-evaluation: EKG interpretation by me on record in [employer] system. Impression time of EKG 2139, this is sinus rhythm rate of [address] elevation or significant ST depression. No significant T-wave abnormalities. No prolonged intervals. Adult x-ray chest one view: Negative for acute cardiopulmonary disease. 2243: Patient resting comfortably here. Vital signs are stable. Troponin negative D-dimer negative. EKG nonischemic. Chest x-ray is unremarkable. Patient be admitted to the hospitalist service for chest discomfort angina. Currently this time she is chest pain-free after 4 mg of morphine. Spoke with Dr. Padilla agrees to admit the patient. Source: Patient - Medical/Surgical History Hx Asthma: No Hx Chronic Respiratory Disease: No Hx Diabetes: No Hx Cardiac Disease: No Hx Renal Disease: No Hx Cirrhosis: No Hx Alcoholism: No Hx HIV/AIDS: No Hx Splenectomy or Spleen Trauma: No Other PMH: BREAST CA WITH SURG, GERD, HIGH CHOLESTROL, TONSILECTOMY, APPY, HYST , GALL BLADDER, ORTHO SURG, HIP REPLACMENTS, migraines. [place] feb 14 - Social History Smoking Status: Never smoked Constitutional: Initial Vital Signs Temperature (C) 36.8 C 09/03/17 21:44 Heart Rate 65 09/03/17 21:44 Respiratory Rate 20 09/03/17 21:44 Blood Pressure 106/63 09/03/17 21:44 O2 Sat (%) 96 09/03/17 21:44 O2 Delivery Mode Room Air Allergies/Adverse Reactions: adhesive tape Allergy (Verified 02/25/17 08:27) ketamine Allergy (Verified 02/25/17 09:15) phenylbutazone [From Butazolidin] Allergy (Verified 02/25/17 08:27) topiramate [From Topamax] Allergy (Verified 02/25/17 08:27) Home Medications: Medication Instructions Recorded Acetaminophen/ASA/Caffeine 1 each PO DAILY PRN 02/25/17 [Excedrin Tablet (*)] Aspirin [Aspirin 81mg (*)] 81 mg PO DAILY 02/25/17 Cholecalciferol Vit D3 [Vitamin D3 2,000 units PO BID 02/25/17 (*)] Diphenoxylate HCl/Atrop Sulf 1 - 2 tab PO Q6H PRN 02/25/17 [Lomotil Tab (*)] Esomeprazole Mag Trihydrate 40 mg PO BID 02/25/17 [Nexium] Furosemide [Lasix 20 MG (*)] 20 mg PO BID 02/25/17 Herbals/Supplements -Info Only 1 ea PO DAILY 02/25/17 Hyoscyamine Sulfate [Levsin, 0.125 mg PO DAILY PRN 02/25/17 Hyomax-Sl 0.125 mg (*)] Lact Cmb2/S.thermophl/Bif Cmb1 1 each PO DAILY 02/25/17 [Vsl#3 Cap (*)] Multivitamins [Multivitamin (*)] 1 each PO DAILY 02/25/17 Ondansetron Odt [Zofran Odt 4 mg 4 mg PO DAILY PRN 02/25/17 (*)] Potassium Chloride 10 meq PO HS 02/25/17 Propranolol Sr [Inderal LA 60mg 120 mg PO BID 02/25/17 (*)] Rosuvastatin Calcium [Crestor 5mg] 10 mg PO HS 02/25/17 carBAMazepine ER [Tegretol Xr] 200 mg PO DAILY@1200 02/25/17 carBAMazepine ER [Tegretol Xr] 300 mg PO BID@,02/25/17 Nitroglycerin 0.4 mg SL Q5M PRN #30 tab 02/27/17 predniSONE 60 mg PO DAILY #4 tab 02/28/17 Medical Decision Making - Diagnostics Imaging Results: Imaging Impressions Chest X-Ray 09/03/17 21:54 Impression: Suspect minimal left basilar atelectasis, otherwise, chest negative for acute cardiopulmonary abnormality. - Data Points Laboratory Results: Laboratory Results 09/03/17 21:35 09/03/17 21:35 09/03/17 09/03/17 09/03/17 21:35 21:35 21:35 WBC 8.02 10^3/uL 10^3/uL (3.80-9.50) RBC 4.56 10^6/uL 10^6/uL (4.18-5.33) Hgb 13.3 g/dL g/dL (12.6-16.3) Hct 40.7 % % (38.0-47.0) MCV 89.3 fL fL (81.5-99.8) MCH 29.2 pg pg (27.9-34.1) MCHC 32.7 g/dL g/dL (32.4-36.7) RDW 14.1 % % (11.5-15.2) Plt Count 186 10^3/uL 10^3/uL (150-400) MPV 11.1 fL fL (8.7-11.7) Neut % (Auto) 61.9 % % (39.3-74.2) Lymph % (Auto) 26.9 % % (15.0-45.0) [place] % (Auto) 9.9 % % (4.5-13.0) Eos % (Auto) 0.4 % L % (0.6-7.6) Baso % (Auto) 0.4 % % (0.3-1.7) Nucleat RBC Rel Count 0.0 % % (0.0-0.2) Absolute Neuts (auto) 4.97 10^3/uL 10^3/uL (1.70-6.50) Absolute Lymphs (auto) 2.16 10^3/uL 10^3/uL (1.00-3.00) Absolute Monos (auto) 0.79 10^3/uL 10^3/uL (0.30-0.80) Absolute Eos (auto) 0.03 10^3/uL 10^3/uL (0.03-0.40) Absolute Basos (auto) 0.03 10^3/uL 10^3/uL (0.02-0.10) Absolute Nucleated RBC 0.00 10^3/uL 10^3/uL (0-0.01) Immature Gran % 0.5 % % (0.0-1.1) Immature Gran # 0.04 10^3/uL 10^3/uL (0.00-0.10) PT 12.4 SEC SEC (12.0-15.0) INR 0.90 (0.83-1.16) APTT 25.2 SEC SEC (23.0-38.0) Sodium 140 mEq/L mEq/L (135-145) Potassium 3.8 mEq/L mEq/L (3.5-5.2) Chloride 99 mEq/L mEq/L (97-110) Carbon Dioxide 32 mEq/l H mEq/l (22-31) Anion Gap 9 mEq/L mEq/L (8-16) BUN 18 mg/dL mg/dL (7-23) Creatinine 1.0 mg/dL mg/dL (0.6-1.0) Estimated GFR 56 Glucose 100 mg/dL mg/dL (70-100) Calcium 9.5 mg/dL mg/dL (8.5-10.4) Magnesium 2.2 mg/dL mg/dL (1.6-2.3) Total Bilirubin 0.2 mg/dL mg/dL (0.1-1.4) Conjugated Bilirubin 0.2 mg/dL mg/dL (0.0-0.5) Unconjugated Bilirubin 0.0 mg/dL mg/dL (0.0-1.1) AST 19 IU/L IU/L (14-46) ALT 36 IU/L IU/L (9-52) Alkaline Phosphatase 112 IU/L IU/L (38-126) Creatine Kinase 76 IU/L IU/L (0-156) CK-MB (CK-2) Fraction 1.22 ng/mL ng/mL (0.00-3.19) Troponin I < 0.012 ng/mL ng/mL (0.000-0.034) NT-Pro-B Natriuret Pep 91 pg/mL pg/mL (0-125) Total Protein 6.4 g/dL g/dL (6.3-8.2) Albumin 3.8 g/dL g/dL (3.5-5.0) Lipase 101 IU/L IU/L (23-300) Medications Given: Discontinued Medications Sodium Chloride (Ns) 1,000 mls @ 0 mls/hr IV EDNOW ONE; Wide Open PRN Reason: Protocol Stop: 09/03/17 21:54 Last Admin: 09/03/17 22:09 Dose: 1,000 mls Morphine Sulfate (Morphine) 4 mg IVP EDNOW ONE Stop: 09/03/17 21:54 Last Admin: 09/03/17 22:12 Dose: 4 mg Ondansetron HCl (Zofran) 4 mg IVP EDNOW ONE Stop: 09/03/17 21:54 Last Admin: 09/03/17 22:11 Dose: 4 mg Departure - Departure Disposition: [facility] Inpatient Acute Clinical Impression: Chest pain Qualifiers: Chest pain type: unspecified Qualified Code(s): R07.9 - Chest pain, unspecified Condition: Fair
[2017-09-03] MEDS ORDERED: NS 1,000 ML IV ONE (21:53)
[2017-09-03] MEDS ORDERED: ONDANSETRON 4 MG/2 ML VIAL IVP ONE (21:53)
[2017-09-03 22:06] LABS: PLATELET COUNT 186 10^3/uL (150-400)
[2017-09-03 22:11] LABS: CREATINE KINASE 76 IU/L (0-156)
[2017-09-03 22:13] LABS: INR 0.9 (0.83-1.16); PROTIME(PATIENT) 12.4 SEC (12.0-15.0)
[2017-09-03] MEDS ORDERED: LORazepam 0.5 MG TAB PO PRN (23:24)
[2017-09-03] MEDS ORDERED: ONDANSETRON 4 MG/2 ML VIAL IVP PRN (23:24)
[2017-09-03] MEDS ORDERED: ACETAMINOPHEN 325 MG TAB PO PRN (23:24)
[2017-09-04] MEDS ORDERED: NITROGLYCERIN 2% 1 GM PACKET ONE (01:22)
[2017-09-04] MEDS ORDERED: NITROGLYCERIN 2% 1 GM PACKET TP ONE (01:30)
--- NOTE | 2017-09-04 04:33 | PDGENHP ---
History and Physical - Chief Complaint Chest pain - History of Present Illness Source-patient provides history and appears reliable. EMR was reviewed including patient's previous hospital stay in January 2017 and case discussed with ED provider. 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 Patient reports that she was sitting on the couch watching TV with her this evening when she noticed that she had a burning pressure. Pain was initially mild adjusted slight discomfort however over the course of several minutes her discomfort increase to pain of 7/10 with radiation to her left arm. At that point patient also reports that she developed some dyspnea with the increasing pain. Patient took a single sublingual nitroglycerin with slight improvement in her symptoms. She also took 4x81 mg aspirin tabs as directed by dispatcher. EMS arrived and patient subsequently received 2 additional doses of nitroglycerin spray. Patient reports that her symptoms did improve but did not completely resolved. On route patient also reports that she developed some GI upset and nausea but no vomiting. She denies any diaphoresis. In the ED, patient without any acute EKG changes and normal troponin. Patient reports that she continues to have just a very mild central chest discomfort 1/ 10 but during the course of the interview patient reports that was beginning to escalate without any associated symptoms. Patient reports that she had not had any issues or exacerbations in her chest pain symptoms since January and had been managed on medical therapy alone. Patient reports compliance with her home medication regimen as prescribed by Cardiology. Since January however patient was placed on Arimidex following a bilateral mastectomy for recurrent breast cancer. History Information - Allergies/Home Medication List Allergies/Adverse Reactions: adhesive tape Allergy (Verified 02/25/17 08:27) ketamine Allergy (Verified 02/25/17 09:15) phenylbutazone [From Butazolidin] Allergy (Verified 02/25/17 08:27) topiramate [From Topamax] Allergy (Verified 02/25/17 08:27) Home Medications: Acetaminophen/ASA/Caffeine [Excedrin Tablet (*)] 1 each PO DAILY PRN 02/25/17 [ Last Taken Unknown] Aspirin [Aspirin 81mg (*)] 81 mg PO DAILY 02/25/17 [Last Taken 02/25/17] Cholecalciferol Vit D3 [Vitamin D3 (*)] 2,000 units PO BID 02/25/17 [Last Taken 02/25/17] Diphenoxylate HCl/Atrop Sulf [Lomotil Tab (*)] 1 - 2 tab PO Q6H PRN 02/25/17 [ Last Taken Unknown] Esomeprazole Mag Trihydrate [Nexium] 40 mg PO BID 02/25/17 [Last Taken 02/25/17] Furosemide [Lasix 20 MG (*)] 20 mg PO BID 02/25/17 [Last Taken 02/25/17] Herbals/Supplements -Info Only 1 ea PO DAILY 02/25/17 [Last Taken Unknown] Hyoscyamine Sulfate [Levsin, Hyomax-Sl 0.125 mg (*)] 0.125 mg PO DAILY PRN 02/25 [Last Taken Unknown] Lact Cmb2/S.thermophl/Bif Cmb1 [Vsl#3 Cap (*)] 1 each PO DAILY 02/25/17 [Last Taken Unknown] Multivitamins [Multivitamin (*)] 1 each PO DAILY 02/25/17 [Last Taken 02/25/17] Ondansetron Odt [Zofran Odt 4 mg (*)] 4 mg PO DAILY PRN 02/25/17 [Last Taken Unknown] Potassium Chloride 10 meq PO HS 02/25/17 [Last Taken 02/24/17] Propranolol Sr [Inderal LA 60mg (*)] 120 mg PO BID 02/25/17 [Last Taken 02/25/17 ] Rosuvastatin Calcium [Crestor 5mg] 10 mg PO HS 02/25/17 [Last Taken 02/24/17] carBAMazepine ER [Tegretol Xr] 200 mg PO DAILY@1200 02/25/17 [Last Taken ] carBAMazepine ER [Tegretol Xr] 300 mg PO BID@07,21 02/25/17 [Last Taken 02/24/17 ] I have personally reviewed and updated: family history, medical history, social history, surgical history - Past Medical History GERD, hyperlipidemia Additional medical history: Trigeminal neuralgia, ALCON on CPAP, HLD, GERD, myocardial bridge of the LAD and otherwise clean cardiac cath January 2017. - Surgical History Reports: cholecystectomy Additional surgical history: Cardiac cath, bilateral mastectomy. - Family History Positive for: CAD, hypertension, myocardial infarction - Social History Smoking Status: Never smoked Review of Systems Review of Systems: ROS: 10pt was reviewed & negative except for what was stated in HPI & below ( See HPI) Constitutional: Denies: chills, fever EENMT: Denies: nose congestion, sore throat Cardiac: Reports: chest pain, other (Denies orthopnea, PND). Denies: lightheadedness, palpitations Respiratory: Reports: shortness of breath (With exacerbation of chest pain see HPI). Denies: cough, orthopnea Gastrointestinal: Reports: nausea (Resolved). Denies: abdominal pain, diarrhea Genitourinary: Denies: dysuria, hematuria Muscolosketal: Denies: back pain, muscle pain Skin: Reports: no symptoms Neurological: Reports: no symptoms Physical Exam Physical Exam: Selected Entries 09/03/17 09/04/17 21:44 00:00 Heart Rate 65 62 Respiratory 20 18 Rate O2 Sat (%) 96 97 Temperature (C) 36.8 C Blood Pressure 106/63 114/61 Mean Arterial 77 78 Pressure (MAP) O2 (L/minute) 2 O2 Delivery Room Air Nasal Cannula Mode Temp Pulse Resp BP Pulse Ox 36.7 C 67 20 105/51 L 99 09/04/17 02:00 09/04/17 02:00 09/04/17 02:00 09/04/17 02:00 09/04/17 02:00 O2 (L/minute) 2 Constitutional: no apparent distress, obese, No uncomfortable Eyes: PERRL, anicteric sclera, EOMI Ears, Nose, Mouth, Throat: moist mucous membranes, other (No nasal discharge), No poor dentition Cardiovascular: regular rate and rhythym, no murmur, rub, or gallop, edema ( Trace bilateral lower extremity), No systolic murmur Peripheral Pulses: 2+: dorsalis-pedis (R), dorsalis-pedis (L) Respiratory: no respiratory distress, no rales or rhonchi, clear to auscultation Gastrointestinal: normoactive bowel sounds, soft, non-tender abdomen, no palpable masses, No guarding, No distension Genitourinary: no bladder tenderness, No marin in urethra Skin: warm, normal color, no rashes or abrasions Musculoskeletal: full muscle strength, No generalized weakness Neurologic: AAOx3, sensation intact bilaterally, other (Grossly nonfocal exam. Patient moves all extremities.), No facial droop Psychiatric: interacting appropriately, not anxious, not encephalopathic, thought process linear Lab Data & Imaging Review 09/03/17 21:35 09/03/17 21:35 WBC 8.02 10^3/uL (3.80-9.50) 09/03/17 21:35 RBC 4.56 10^6/uL (4.18-5.33) 09/03/17 21:35 Hgb 13.3 g/dL (12.6-16.3) 09/03/17 21:35 Hct 40.7 % (38.0-47.0) 09/03/17 21:35 MCV 89.3 fL (81.5-99.8) 09/03/17 21:35 MCH 29.2 pg (27.9-34.1) 09/03/17 21:35 MCHC 32.7 g/dL (32.4-36.7) 09/03/17 21:35 RDW 14.1 % (11.5-15.2) 09/03/17 21:35 Plt Count 186 10^3/uL (150-400) 09/03/17 21:35 MPV 11.1 fL (8.7-11.7) 09/03/17 21:35 Neut % (Auto) 61.9 % (39.3-74.2) 09/03/17 21:35 Lymph % (Auto) 26.9 % (15.0-45.0) 09/03/17 21:35 Brown % (Auto) 9.9 % (4.5-13.0) 09/03/17 21:35 Eos % (Auto) 0.4 % (0.6-7.6) L 09/03/17 21:35 Baso % (Auto) 0.4 % (0.3-1.7) 09/03/17 21:35 Nucleat RBC Rel Count 0.0 % (0.0-0.2) 09/03/17 21:35 Absolute Neuts (auto) 4.97 10^3/uL (1.70-6.50) 09/03/17 21:35 Absolute Lymphs (auto) 2.16 10^3/uL (1.00-3.00) 09/03/17 21:35 Absolute Monos (auto) 0.79 10^3/uL (0.30-0.80) 09/03/17 21:35 Absolute Eos (auto) 0.03 10^3/uL (0.03-0.40) 09/03/17 21:35 Absolute Basos (auto) 0.03 10^3/uL (0.02-0.10) 09/03/17 21:35 Absolute Nucleated RBC 0.00 10^3/uL (0-0.01) 09/03/17 21:35 Immature Gran % 0.5 % (0.0-1.1) 09/03/17 21:35 Immature Gran # 0.04 10^3/uL (0.00-0.10) 09/03/17 21:35 PT 12.4 SEC (12.0-15.0) 09/03/17 21:35 INR 0.90 (0.83-1.16) 09/03/17 21:35 APTT 25.2 SEC (23.0-38.0) 09/03/17 21:35 Sodium 140 mEq/L (135-145) 09/03/17 21:35 Potassium 3.8 mEq/L (3.5-5.2) 09/03/17 21:35 Chloride 99 mEq/L (97-110) 09/03/17 21:35 Carbon Dioxide 32 mEq/l (22-31) H 09/03/17 21:35 Anion Gap 9 mEq/L (8-16) 09/03/17 21:35 BUN 18 mg/dL (7-23) 09/03/17 21:35 Creatinine 1.0 mg/dL (0.6-1.0) 09/03/17 21:35 Estimated GFR 56 09/03/17 21:35 Glucose 100 mg/dL (70-100) 09/03/17 21:35 Calcium 9.5 mg/dL (8.5-10.4) 09/03/17 21:35 Magnesium 2.2 mg/dL (1.6-2.3) 09/03/17 21:35 Total Bilirubin 0.2 mg/dL (0.1-1.4) 09/03/17 21:35 Conjugated Bilirubin 0.2 mg/dL (0.0-0.5) 09/03/17 21:35 Unconjugated Bilirubin 0.0 mg/dL (0.0-1.1) 09/03/17 21:35 AST 19 IU/L (14-46) 09/03/17 21:35 ALT 36 IU/L (9-52) 09/03/17 21:35 Alkaline Phosphatase 112 IU/L (38-126) 09/03/17 21:35 Creatine Kinase 76 IU/L (0-156) 09/03/17 21:35 CK-MB (CK-2) Fraction 1.22 ng/mL (0.00-3.19) 09/03/17 21:35 Troponin I < 0.012 ng/mL (0.000-0.034) 09/03/17 21:35 NT-Pro-B Natriuret Pep 91 pg/mL (0-125) 09/03/17 21:35 Total Protein 6.4 g/dL (6.3-8.2) 09/03/17 21:35 Albumin 3.8 g/dL (3.5-5.0) 09/03/17 21:35 Lipase 101 IU/L (23-300) 09/03/17 21:35 Imaging Review: ortable Chest September 03, 2017 at 2159 hours Clinical Indications: Chest pain in a 67-year-old female; comparison prior examination February 25, 2017 Findings: There is minimal opacity at the left lung base which is probably atelectasis, otherwise, the lungs are clear.. Heart size and pulmonary vessels appear normal. Pleural surfaces and bony thorax are negative for acute abnormality. Impression: Suspect minimal left basilar atelectasis, otherwise, chest negative for acute cardiopulmonary abnormality. Visualized and Interpreted Chest x-ray results: Yes EKG additional interpertation: NSR the 60s. LVH. No acute ST changes. QTC 416 Assessment & Plan Assessment: Chest pain (Acute) Plan: Chest pain/angina - patient last with extensive cardiac workup in January of 2017. A myocardial bridge in the LAD was thought to be cause of patient's symptoms. Coronary arteries were otherwise unremarkable without occlusion. Patient has since been managed medically. She reports that compliance with her medication regimen. More recently patient was started on Arimidex for breast cancer status post mastectomy in May and potentially contributing to exacerbation versus simply patient anatomical status. She is currently responsive to nitroglycerin with transient episode of hypotension. She has had recurrent chest pain. Will attempt placement of nitro paste and monitor patient 's blood pressures closely. Repeat cardiac enzyme in the a.m.. Consult Cardiology in the morning for further recommendations as per day team. chronic medical problems HLD - resume statin. GERD - ppi per formulary ALCON on CPAP - pt declines loaner cpap. o2 at hs. Obesity BMI 37.7 FEN - saline lock IV. Electrolyte monitoring and replacement p.r.n.. Cardiac diet. PPX-SCDs. Lovenox if patient should stay additional day. Core-full Despite -admit to observation on PCU for close cardiac monitoring pending Cardiology recommendations.
[2017-09-04] MEDS: HYDROCODONE/APAP 5/325 TAB PO PRN ×2 (06:03→20:43)
--- NOTE | 2017-09-04 08:52 | CPEKG ---
Heart Rate: 58 RR Interval: 1034 P-R Interval: 152 QRSD Interval: 102 QT Interval: 432 QTC Interval: 425 P [place]: 12 QRS [place]: -14 T Wave [place]: -10 EKG Severity - BORDERLINE ECG - EKG Impression: SINUS RHYTHM EKG Impression: PROBABLE LEFT VENTRICULAR HYPERTROPHY Electronically Signed By: Tramaine Acosta 04-Sep-2017 11:47:36
[2017-09-04] MEDS ORDERED: NITROGLYCERIN 0.2 MG/HR PATCH TD SCH (09:00)
[2017-09-04] MEDS ORDERED: DESONIDE 0.05% 15 GM CREAM TP PRN (09:07)
[2017-09-04] MEDS ORDERED: HYOSCYAMINE SULFATE 0.125 MG TAB PO PRN (09:07)
[2017-09-04] MEDS ORDERED: ONDANSETRON DISINTEGRATING 4 MG TAB PO PRN (09:07)
[2017-09-04] MEDS ORDERED: MUPIROCIN 2% 22 GM OINT TP PRN (09:07)
[2017-09-04] MEDS ORDERED: PIMECROLIMUS 1% 30 GM CRTUBE TP PRN (09:07)
[2017-09-04] MEDS ORDERED: ACETAMINOPHEN/ASA/CAFFEINE 1 EACH TAB PO PRN (09:07)
[2017-09-04] MEDS ORDERED: NITROGLYCERIN 0.4 MG BTL SL PRN (09:07)
--- NOTE | 2017-09-04 10:16 | ASMTCASEMG ---
Living Arrangements What is your living Answers: With Spouse arrangement? Who do you live with? Type Of Residence What kind of residence do Answers: House you live in? Discharge Plan Comments Coordination Status Comments Notes: Pt is a 67 y/o female admitted for chest pain. Pt will most likely d/c independent when medically stable. No therapies ordered at this time. CM available for changes. Plan: Independent Date Signed: 09/04/2017 10:15 AM Electronically Signed By:OTONIEL Oneil
--- NOTE | 2017-09-04 11:37 | ECHO ---
[email or web address] [address] [address] Main: [phone] Fax: Transthoracic Echocardiogram Name: ALFONSO SAL MR#: [id number] Study Date: 09/04/2017 Study Time: 10:12 AM Date of : 1950 Age: 67 year(s) Height: 175.3 cm (69 in.) Weight: 115.67 kg (255 lb.) BSA: 2.29 m2 Gender: Female Examination: Echo Indication: Chest Pain Image Quality: Contrast: Requested by: Subhash Torres BP: 161 mmHg/70 mmHg Heart Rate: Rhythm: Indication: Chest Pain Procedure Staff Solid Waste Management Engineer: Tonio Conn RDCS Reading Physician: Tramaine Mercado MD Requesting Provider: Conclusions: Normal size left ventricle. No LV hypertrophy. Normal global systolic LV function. EF is 66 %. No regional wall motion abnormality. Normal diastolic LV function. Normal size right ventricle. The left atrium is normal in size. The right atrium is normal in size. Mild mitral valve regurgitation is present. The aortic valve is tri-leaflet. The tricuspid valve is normal in appearance and function. Measurements: Chambers Valvular Assessment AV/MV Valvular Assessment TV/PV Normal Normal Normal Name Value Range Name Value Range Name Value Range Ao Maris (MM): 3.2 cm (2.2 cm-3.7 AV meanP mmHg ( - ) TR Vmax: 2.52 mm/s ( - ) cm) MV E Vmax: 0.72 m/s ( - ) TR PGmax: 25 mmHg ( - ) IVSd (2D): 0.9 cm (0.6 cm-1.1 MV A Vmax: 0.94 m/s ( - ) syst. PAP: 30 mmHg ( - ) cm) MV E/A: 0.77 ( - ) LVDd (2D): 4.1 cm (3.9 cm-5.3 MV meanP mmHg ( - ) cm) LVDs (2D): 2.6 cm (2.1 cm-4 cm) LVPWd (2D): 1.0 cm ( - ) LVEF (2D): 66 (>=54 %) Continued Measurements: Chambers Valvular Assessment AV/MV Valvular Assessment TV/PV Patient: ALFONSO SAL Study Date: 09/04/2017 Page 1 of 2 10:12 AM Name Value Name Value Name Value LADs: 3.2 cm MV Annulus: 3.1 cm CVP (est.): 5 mmHg LADs Lon.5 cm MV E' Septal: 0.05 m/s LA Area: 16.6 cm2 MV E/E' Septal: 13.90 LA Volume: 62 ml MV E/E' Lateral: 9.50 LA Volume Index: 27.1 ml/m2 MV VTI: 38.30 cm MR ERO: 0.050 cm2 MR PISA radius: 4 mm MR Reg. Volume: 12 ml MR Reg. Fraction: 4 % Findings: Left Ventricle: Normal size left ventricle. No LV hypertrophy. Normal global systolic LV function. EF is 66 %. No regional wall motion abnormality. Normal diastolic LV function. Right Ventricle: Normal size right ventricle. Normal RV function. Left Atrium: The left atrium is normal in size. Right Atrium: The right atrium is normal in size. Mitral Valve: The mitral valve is normal in appearance and function. Mild mitral valve regurgitation is present. Aortic Valve: The aortic valve is normal in appearance and function. The aortic valve is tri-leaflet. Tricuspid Valve: The tricuspid valve is normal in appearance and function. Pulmonic Valve: Pulmonary valve not well visualized. Aorta: The aorta is normal. Pericardium: No pericardial effusion. (No Signature Object) Patient: ALFONSO SAL Study Date: 09/04/2017 Page 2 of 2 10:12 AM [id number]
[2017-09-04] MEDS: GABAPENTIN 100 MG CAP PO SCH ×3 (11:59→20:39)
[2017-09-04] MEDS: PANTOPRAZOLE SODIUM 40 MG TAB PO SCH ×2 (12:00→20:40)
[2017-09-04] MEDS: ANASTROZOLE 1 MG TAB PO SCH (12:15)
[2017-09-04] MEDS: PROPRANOLOL SR 60 MG CAP PO SCH ×2 (12:19→20:39)
[2017-09-04] MEDS: ENOXAPARIN 40 MG/0.4 ML SYR SC SCH (13:00)
--- NOTE | 2017-09-04 14:22 | HOSPPROG ---
Hospitalist Progress Note Assessment/Plan: #Chest pain #elevated troponin, 1.6. Was normal on admission -no EKG changes on admission or on repeat, personally reviewed #Hx of LAD Myocardial bridge #chronic angina Plan: ?NSTEMI will have Cards see now recheck trop She has had an unremarkable cath in January 2017 Keep NPO until seen by cards Check for other reasons for elevated troponin, r/o acute P.E., no hx of clots check TTE stat Make inpatient total critical care time on this patient with acute chest pain with acute bump of troponin concerning for acute NSTEMI is 45 minutes additional reccs per work up Subjective: still with 4/10 chest pain, better with Nitro. Trop is elevated. Objective: Vital Signs Temp Pulse Resp BP Pulse Ox 36.7 C 58 L 12 132/71 H 96 09/04/17 11:53 09/04/17 11:53 09/04/17 11:53 09/04/17 11:53 09/04/17 11:53 09/03/17 09/04/17 09/05/17 05:59 05:59 05:59 Intake Total 1000 Balance 1000 PT 12.4 SEC (12.0-15.0) 09/03/17 21:35 INR 0.90 (0.83-1.16) 09/03/17 21:35 - Physical Exam Constitutional: no apparent distress Eyes: PERRL Ears, Nose, Mouth, Throat: moist mucous membranes, hearing normal, ears appear normal Cardiovascular: regular rate and rhythym, No edema Respiratory: no respiratory distress, no rales or rhonchi, clear to auscultation Gastrointestinal: normoactive bowel sounds, soft, non-tender abdomen Skin: warm Neurologic: AAOx3 Psychiatric: interacting appropriately Lymph, Heme, Immunologic: No petechiae ICD10 Worksheet Patient Problems: Problems Problem Status Onset Chest pain Acute Chest pain Acute
[2017-09-04] MEDS ORDERED: NS 1,000 ML IV SCH (14:30)
[2017-09-04] MEDS ORDERED: IOPAMIDOL (ISOVUE 370) 100 ML BTL IV ONE (14:32)
--- NOTE | 2017-09-04 15:08 | PDCARPN ---
Cardiology Progress Note Chief Complaint: Chest pain Assessment/Plan: Assessment: Patient is a 67 y/o female, known to [facility] from prior admission in late 2016 with HLP, GERD, ALCON with CPAP use, and myocardial bridge (LAD), who presents back to [facility] with a second bout of "chest discomfort". Discomfort was noted yesterday, and given the presentation, the patient presented to [facility] ER. Symptoms were unprovoked (patient was watching television). Peak discomfort to about 7/10 with associated dyspnea. One SL NTG was taken, and some improvement was noted, but given the symptom presence, she proceeded to the ER. EMS arrived and gave the patient two additional doses of SL NTG and once again, moderate improvement in symptoms was noted, but not complete resolution. In the ER, ECG without dynamic ST/T wave changes appreciated, and the first troponin was noted to be within normal limits (not unexpected). Troponin elevation today is up to 3.8 (peak in January was about 2). No cardiovascular complaints are being noted at present. Morphine was given earlier today, and symptoms resolved completely. At present, the patient has nitro paste. No chest pains or pressure. No PND or orthopnea. No dizziness, lightheadedness, dyspnea, or nausea currently noted. Echocardiogram today without wall motion abnormalities noted. ECG without dynamic ST/T wave changes noted Plan: (1) Would continue therapy on beta blockers (currently Propranolol 120 mg twice per day), but would consider change in formulation to metoprolol tartrate (2) Would continue therapy on statins for HLP history (3) Begin therapy on long acting nitrates (Imdur 30 mg) (4) Should this trial not successfully alleviate the patient's symptoms, two option remain - up titration of the Imdur to 60 mg per day - reassessment via invasive left heart catheterization - - given recent angiogram, and non critical CAD noted (there was myocardial bridging), the likely need to revisit this invasive procedure is low (5) Continue CPAP use given history of ALCON, and risk for pAF with said diagnosis. Subjective: No current CV symptoms Reviewed/Discussed With: family, hospitalist, multidisciplinary team Objective: Vital Signs (8 Hrs) Temp Pulse Resp BP Pulse Ox 09/04/17 11:53 36.7 C 58 L 12 132/71 H 96 09/04/17 08:05 36.6 C 60 18 151/70 H 96 09/04/17 07:57 36.8 C 69 16 121/52 H 97 Intake/Output (24 Hrs) 09/03/17 09/04/17 09/05/17 05:59 05:59 05:59 Intake Total 1000 Balance 1000 Intake: IV Infused (ml) 1000 Other: Weight 115.666 kg Number of Voids 2 Result Diagrams: 09/03/17 21:35 09/03/17 21:35 Cardiac Labs: Cardiac Lab Results (72 Hrs) 09/04/17 09/04/17 10:00 06:10 Troponin I 3.800 H 1.610 H Telemetry: normal sinus rhythm - Physical Exam Constitutional: WDWN, healthy appearing, no apparent distress, obese Eyes: PERRL, EOMI Ears, Nose, Mouth, Throat: moist mucous membranes Cardiovascular: regular rate and rhythm, no murmurs, no rubs, no gallops, pulses symmetric bilat, No jugular vein distention Peripheral Pulses: 2+: dorsalis-pedis (R), dorsalis-pedis (L) Respiratory: clear to auscultate bilat, no crackles, no wheezes Gastrointestinal: normoactive bowel sounds Skin: no rashes, no edema Musculoskeletal: no muscular tenderness Neurologic: AAOx3, CN II-XII grossly intact Psychiatric: cooperative, interactive, following commands ICD10 Worksheet Patient Problems: Problems Problem Status Onset Chest pain Acute Chest pain Acute
[2017-09-04] MEDS: ISOSORBIDE MONONITRATE 30 MG TAB.SR PO SCH (16:39)
--- NOTE | 2017-09-04 17:01 | PDMN ---
Medical Necessity Medical necessity: Change to IP, as of 09/04/17, per MD; los >2 mn for ongoing management of possible NSTEMI requiring further workup/monitoring, Cardiology consult w/possible intervention, IVFs & med management; hx trigeminal neuralgia , ALCON on CPAP & angina r/t myocardial bridge of LAD; per progress note & order
[2017-09-04] MEDS: CHOLECALCIFEROL VIT D3 1,000 UNITS TAB PO SCH (20:39)
[2017-09-04] MEDS ORDERED: ROSUVASTATIN CALCIUM 10 MG PO SCH (21:00)
[2017-09-04] MEDS ORDERED: POTASSIUM CL 10 MEQ TAB PO SCH (21:00)
[2017-09-04] MEDS ORDERED: NON-FORMULARY NEW DRUG (Esomeprazole Mag Trihydrate [Nexium] 40 MG) PO SCH (21:00)
[2017-09-04] MEDS ORDERED: PATCH REMOVAL 1 EA PATCH TD SCH (21:00)
[2017-09-04] MEDS ORDERED: ROSUVASTATIN CALCIUM 10 MG TAB PO SCH (21:00)
[2017-09-05] MEDS: CHOLECALCIFEROL VIT D3 1,000 UNITS TAB PO SCH (08:14)
[2017-09-05] MEDS: GABAPENTIN 100 MG CAP PO SCH (08:14)
[2017-09-05] MEDS: ANASTROZOLE 1 MG TAB PO SCH (08:14)
[2017-09-05] MEDS: ISOSORBIDE MONONITRATE 30 MG TAB.SR PO SCH (08:14)
[2017-09-05] MEDS: ENOXAPARIN 40 MG/0.4 ML SYR SC SCH (08:14)
[2017-09-05] MEDS: PANTOPRAZOLE SODIUM 40 MG TAB PO SCH (08:14)
[2017-09-05] MEDS: PROPRANOLOL SR 60 MG CAP PO SCH (08:14)
[2017-09-05] MEDS ORDERED: FLUTICASONE NASAL 120 SPRAYS/16 GM MDI EACHNARE SCH (09:00)
[2017-09-05] MEDS ORDERED: MULTIVITAMINS 1 EACH TAB PO SCH (09:00)
[2017-09-05] MEDS ORDERED: VSL#3 1 EACH CAP PO SCH (09:00)
[2017-09-05] MEDS ORDERED: Herbals/Supplements -Info Only PO SCH (09:00)
[2017-09-05 12:17] VITALS: BP 104/60; PULSE 63; RESP 16; TEMP 98.5; O2SAT 93
--- NOTE | 2017-09-05 12:58 | PDDCSUM ---
Discharge Summary Discharge Summary: HPI/Hospital course: the pt is a 67 yo female with hx of LAD Myocardial Bridge who was admitted with chest pain and had an elevated troponin in the 3's. there was concern for a NSTEMI. She had no EKG changes. She was seen by cardiology. She has a hx of unremarkable cath in January 2017. Cath, therefore, was not performed. Med mgt was optimized. Imdur 30 mg was started. Propranolol was stopped and she was started on Metoprolol Tartrate She is no longer having chest pain. TTE was unremarkable with preserved LVEF and no regional wall abnormalities. CTA was negative Cardiology has cleared the patient for discharge. DDx: #Chest pain, resolved with addition of Imdur. If continues would increase Imdur. BB has been changed to Metoprolol. #elevated troponin with hx of normal cath in January 2017 -no EKG changes on admission or on repeat, personally reviewed #Hx of LAD Myocardial bridge #chronic angina #Chronic migraines. She takes propranolol for this and this is being stopped. She has f/u with Neuro in 2 weeks. Exam: VSS NAD AAOX3 RRR CTA B S/NT/ND MEDS: SEE MED REC: MEDS STOPPED PROPRANOL. Meds started: 1)Imdur, 2) Metoprolol f/u: pcp in one week. cards in 1-3 weeks total time spent on d/c is 40 minutes
== END 2017-09-05 14:00 | disposition home or self-care (01) | DRG 313 ==
LOC: EDUNIT# → F2W 09-04 08:15 → OBSVTOIN 09-04 14:23
PROVIDERS: ADMIT Student in an Organized Health Care Education/Training Program; ATTEND Student in an Organized Health Care Education/Training Program
DX: R07.9 Chest pain, unspecified (principal); I10 Essential (primary) hypertension; E78.5 Hyperlipidemia, unspecified; G47.33 Obstructive sleep apnea (adult) (pediatric); K21.9 Gastro-esophageal reflux disease without esophagitis; I25.118 Atherosclerotic heart disease of native coronary artery with other forms of angina pectoris; G43.909 Migraine, unspecified, not intractable, without status migrainosus; G50.0 Trigeminal neuralgia; I25.2 Old myocardial infarction; E66.9 Obesity, unspecified; Z68.37 Body mass index [BMI] 37.0-37.9, adult; Z85.3 Personal history of malignant neoplasm of breast; Z96.643 Presence of artificial hip joint, bilateral
CPT/HCPCS: 96374; J1650; J2270; J2405; Q9967

== ENCOUNTER → 2018-03-21 | Outpatient (CLI) | payer OTHER, BC | LOC: FCPNEURO 20:00 | PROVIDERS: ATTEND Internal Medicine Sleep Medicine | DX: G47.33 Obstructive sleep apnea (adult) (pediatric) (principal); G47.61 Periodic limb movement disorder ==

== ENCOUNTER → 2018-04-07 | Outpatient (CLI) | payer OTHER, BC | LOC: FIMAGING 06:52 | PROVIDERS: ATTEND Orthopaedic Surgery Sports Medicine | DX: M25.552 Pain in left hip (principal); M76.01 Gluteal tendinitis, right hip; Z96.642 Presence of left artificial hip joint ==